=== PATIENT | male | born 1975 | race Caucasian/White ===

== ENCOUNTER 2018-06-15 08:05 | Observation (INO) ==
[2018-06-15] MEDS ORDERED: Ondansetron 4 MG/2 ML VIAL IVP ONE (08:15)
[2018-06-15] MEDS ORDERED: 0.9 % Sodium Chloride 1,000 ML IVC ONE ×2 (08:15→09:54)
[2018-06-15] MEDS ORDERED: Insulin Human Regular 10 UNIT in 0.9 % Sodium Chloride 10 ML IV ONE (08:22)
--- NOTE | 2018-06-15 08:25 | Emergency Department Note ---
Disposition Clinical Impression: Diabetes mellitus, new onset Disposition: Transfer Short-Term Hosp Condition: Fair Time of Disposition: 09:36 ( will admit) General Adult HPI - General Chief complaint: ED General Medical Stated complaint: nausea, dry mouth, cold sweat, diarrhea Time Seen by Provider: 06/15/18 08:23 Source: patient Mode of arrival: ambulatory Limitations: no limitations Nursing Notes Reviewed: Yes Vital Signs Reviewed: Yes - History of Present Illness HPI Narrative: 43-year-old male presents to the emergency room with complaints of nausea, generalized weakness dry mouth. He reports that his friend is a diabetic and he had his friend check his blood sugar at home, and apparently the machine read greater than 500 on the Accu-Chek. Patient states that he has no history of diabetes, he also complains of some mild shortness of breath but denies any chest pain. He reports that a few days ordered of also diarrhea. No fever no chills no back pain or flank pain. Onset (ago): day(s) (2) Radiation: non-radiation Pain Severity: mild Pain Scale: 0 Consistency: constant Improves with: nothing Worsens with: nothing Associated symptoms: Reports: denies other symptoms, shortness of breath, weakness. Denies: confusion, chest pain, cough, diaphoresis, fever/chills, headaches, loss of appetite, malaise, nausea/vomiting, seizure, syncope Treatments Prior to Arrival: none - Related Data Home Medications Medication Instructions Recorded Confirmed Lisinopril [Zestril] 20 mg PO DAILY 06/15/18 06/15/18 Allergies Allergy/AdvReac Type Severity Reaction Status Date / Time Penicillins [PCN] Allergy Hives Verified 06/15/18 08:07 All systems ED: reviewed and negative except as stated. Constitutional: Denies: fever, chills, weakness, weight change Eyes: Denies: eye pain, eye discharge, vision change ENT ED: Denies: ear pain, throat pain, dental pain, hearing loss, epistaxis, congestion, dysphagia Cardiovascular: Denies: chest pain, palpitations, dyspnea on exertion, edema, syncope Respiratory: Denies: cough, dyspnea, wheezes, hemoptysis, stridor Gastrointestinal: Denies: abdominal pain, nausea, vomiting, diarrhea, constipation, hematemesis, melena, hematochezia Genitourinary: Denies: urgency, dysuria, frequency, hematuria Musculoskeletal: Denies: back pain, neck pain, arthralgia, myalgia Integumentary: Denies: rash, abrasion, lesions Neurological: Denies: headache, weakness, numbness, paresthesias, confusion, abnormal gait, vertigo Psychiatric: Denies: anxiety, depression, suicidal thoughts, homicidal thoughts , auditory hallucinations, visual hallucinations Endocrine: Reports: fatigue, polydipsia Hematological/Lymphatic: Denies: easy bleeding, easy bruising Allergic/Immunologic: Denies: facial swelling, urticaria Past Medical History - Past Medical History Medical history: Reports: hypertension Psychiatric history: Reports: no psych history - Social History Smoking Status: Never smoker Smokeless Tobacco Status: Yes Alcohol use: Reports: none Drug use: Reports: none Physical Exam - General Limitations: no limitations General appearance: alert, in no apparent distress - Head Head exam: atraumatic, normocephalic, normal inspection - Eye Eye exam: Present: normal appearance, PERRL, EOMI - Expanded Eye Exam Pupils: Left: reactive - ENT ENT exam: normal exam, normal oropharynx, mucous membranes moist - Expanded ENT Exam External ear exam: Present: normal external inspection Mouth exam: Present: normal external inspection Teeth exam: Present: normal inspection Throat exam: Present: normal inspection - Neck Neck exam: Present: normal inspection, full ROM, trachea midline - Chest Chest inspection: Present: normal inspection, symmetric chest wall rise - Respiratory Respiratory exam: Present: normal lung sounds bilaterally - Cardiovascular Cardiovascular exam: Present: regular rate, normal rhythm, normal heart sounds - Abdominal Exam Abdominal exam: Present: soft, Non-Tender. Absent: tenderness, distention, guarding, rebound, rigidity - Extremities Exam Extremities exam: Present: normal inspection, full ROM. Absent: tenderness, pedal edema - Expanded Upper Extremity Exam Shoulder exam: Present: normal inspection, full ROM Arm exam: Present: normal inspection, full ROM Elbow exam: Present: normal inspection, full ROM Forearm/Wrist exam: Present: normal inspection, full ROM Hand exam: Present: normal inspection, full ROM Vascular exam: Normal: capillary refill, radial pulse - Expanded Lower Extremity Exam Hip/Pelvis exam: Present: normal inspection, full ROM Upper leg exam: Present: normal inspection, full ROM Knee exam: Present: normal inspection, full ROM Lower leg exam: Present: normal inspection, full ROM Ankle exam: Present: normal inspection, full ROM Foot/toe exam: Present: normal inspection, full ROM Neurovascular/Tendon exam: Absent: motor deficit, sensory deficit, tendon deficit - Back Exam Back exam: Present: normal inspection, full ROM. Absent: tenderness - Neurological Exam Neurological exam: Present: alert, oriented X3 - Expanded Neurological Exam Patient oriented to: Present: person, place, time Coma Scale Eye Opening: Spontaneous Coma Scale Motor Response: Obeys Commands Coma Scale Verbal Response: Oriented Coma Scale Total: 15 - Psychiatric Psychiatric exam: Present: normal affect, normal mood - Skin Skin exam: Present: warm, dry, intact, normal color Course Vital Signs Temperature 98.1 F 06/15/18 08:08 Pulse Rate 107 06/15/18 08:08 Respiratory Rate 17 06/15/18 08:08 Blood Pressure 140/86 06/15/18 08:08 O2 Sat by Pulse Oximetry 93 06/15/18 08:08 Temperature 98.1 F 06/15/18 08:08 Pulse Rate 85 06/15/18 11:04 Respiratory Rate 16 06/15/18 11:04 Blood Pressure 126/75 06/15/18 11:04 O2 Sat by Pulse Oximetry 95 06/15/18 11:04 Oxygen Delivery Oxygen Delivery Room Air Medical Decision Making - MDM Narrative Medical decision making narrative: Labs are obtained including CBC chemistries troponin EKG chest x-ray. ABG and a beta hydroxybutyric acid was ordered. Patient was given IV normal saline 1 L, 10 units of insulin regular are IV. According to lab for chemistry machine is presently down, I will not be back up until 2 hours. Patient will be admitted for overnight observation. I spoke with the hospitalist and he was okay with patient being placed in overnight FAMILY and patient agreed. Patient was given an additional 1 L bolus of normal saline, and 4 units of insulin regular IV, repeat Accu-Chek at admission was 392. - Differential Diagnosis New onset diabetic, DKA, dehydration - Medical Records Medical records reviewed: Yes I reviewed the patient's medical records. - Lab Data Lab results reviewed: Yes I reviewed the patient's lab results. Result diagrams: 06/15/18 08:43 06/15/18 08:43 Lab Results 06/15/18 06/15/18 06/15/18 Range/Units 08:18 08:43 08:43 WBC 9.7 (4.3-11.1) K/mcL RBC 4.95 (4.19-5.50) M/mcL Hgb 15.4 (12.9-16.9) g/dL Hct 44.2 (37.5-50.1) % MCV 89.3 (83.0-100.0) fL MCH 31.1 (28.0-33.3) pg MCHC 34.8 (31.6-35.5) g/dL RDW 12.2 (11.5-14.5) % Plt Count 163 (140-400) K/mcL MPV 11.7 (9.4-12.4) fL Immature Gran % 1.6 (0-4) % Seg Neutrophils % 66.9 % Lymphocytes % 23.7 % Monocytes % 5.9 % Eosinophils % 1.4 % Basophils % 0.5 % Neutrophils # 6.5 (1.6-8.9) K/mcL Lymphocytes # 2.3 (0.6-4.6) K/mcL Monocytes # 0.6 (0.0-1.3) K/mcL Eosinophils # 0.1 (0.0-0.6) K/mcL Basophils # 0.1 (0.0-0.2) K/mcL Sample Site ABG pH (7.32-7.45) pH Units ABG pCO2 (35-45) mmHg ABG pO2 (85-104) mmHg ABG HCO3 (21-27) mEq/L ABG Total CO2 (20-26) mEq/L ABG O2 Saturation (95-98) % ABG Base Excess (-2 to 3) mEq/L Tho Test O2 Delivery Device Sodium 131 L (136-145) mEq/L Potassium 4.2 (3.5-5.1) mEq/L Chloride 92 L (98-107) mEq/L Carbon Dioxide 28 (23-29) mEq/L BUN 11 (6-20) mg/dL Creatinine 0.91 (0.70-1.30) mg/dL Est GFR ( Amer) > 60 (> 60) Est GFR (Non-Af Amer) > 60 (> 60) BUN/Creatinine Ratio 12 (6-26) Glucose 537 H* (70-105) mg/dL POC Glucose 524 H* (70-99) mg/dL Calculated Osmolality 296 (280-300) Calcium 9.9 (8.6-10.3) mg/dL Total Bilirubin 0.8 (0.3-1.0) mg/dL AST 106 H (13-39) Units/L ALT 114 H (7-52) Units/L Alkaline Phosphatase 147 H (34-104) Units/L Troponin I (< 0.04) ng/mL Serum Total Protein 7.5 (6.4-8.9) g/dL Albumin 4.2 (3.5-5.7) g/dL Globulin 3.3 (2.4-3.5) g/dL Albumin/Globulin Ratio 1.3 (1.1-2.2) Beta-Hydroxybutyric Acd (0.02-0.27) mmol/L Urine Color (Yellow) Urine Clarity (Clear) Urine pH (5.0-8.0) pH Units Ur Specific [place] (1.010-1.025) Urine Protein (Neg-Trace) mg/dL Urine Glucose (UA) (Normal) mg/dL Urine Ketones (Negative) mg/dL Urine Blood (Negative) Urine Nitrite (Negative) Urine Bilirubin (Negative) Urine Urobilinogen (Normal) mg/dL Ur Leukocyte Esterase (Negative) Ur Culture Indicated? (NO) 06/15/18 06/15/18 06/15/18 Range/Units 08:43 08:43 09:00 WBC (4.3-11.1) K/mcL RBC (4.19-5.50) M/mcL Hgb (12.9-16.9) g/dL Hct (37.5-50.1) % MCV (83.0-100.0) fL MCH (28.0-33.3) pg MCHC (31.6-35.5) g/dL RDW (11.5-14.5) % Plt Count (140-400) K/mcL MPV (9.4-12.4) fL Immature Gran % (0-4) % Seg Neutrophils % % Lymphocytes % % Monocytes % % Eosinophils % % Basophils % % Neutrophils # (1.6-8.9) K/mcL Lymphocytes # (0.6-4.6) K/mcL Monocytes # (0.0-1.3) K/mcL Eosinophils # (0.0-0.6) K/mcL Basophils # (0.0-0.2) K/mcL Sample Site ABG pH (7.32-7.45) pH Units ABG pCO2 (35-45) mmHg ABG pO2 (85-104) mmHg ABG HCO3 (21-27) mEq/L ABG Total CO2 (20-26) mEq/L ABG O2 Saturation (95-98) % ABG Base Excess (-2 to 3) mEq/L Tho Test O2 Delivery Device Sodium (136-145) mEq/L Potassium (3.5-5.1) mEq/L Chloride (98-107) mEq/L Carbon Dioxide (23-29) mEq/L BUN (6-20) mg/dL Creatinine (0.70-1.30) mg/dL Est GFR ( Amer) (> 60) Est GFR (Non-Af Amer) (> 60) BUN/Creatinine Ratio (6-26) Glucose (70-105) mg/dL POC Glucose (70-99) mg/dL Calculated Osmolality (280-300) Calcium (8.6-10.3) mg/dL Total Bilirubin (0.3-1.0) mg/dL AST (13-39) Units/L ALT (7-52) Units/L Alkaline Phosphatase (34-104) Units/L Troponin I < 0.03 (< 0.04) ng/mL Serum Total Protein (6.4-8.9) g/dL Albumin (3.5-5.7) g/dL Globulin (2.4-3.5) g/dL Albumin/Globulin Ratio (1.1-2.2) Beta-Hydroxybutyric Acd 0.31 H (0.02-0.27) mmol/L Urine Color Yellow (Yellow) Urine Clarity Clear (Clear) Urine pH 6.5 (5.0-8.0) pH Units Ur Specific [place] <= 1.005 L (1.010-1.025) Urine Protein Negative (Neg-Trace) mg/dL Urine Glucose (UA) >=1000 H (Normal) mg/dL Urine Ketones Negative (Negative) mg/dL Urine Blood Negative (Negative) Urine Nitrite Negative (Negative) Urine Bilirubin Negative (Negative) Urine Urobilinogen Normal (Normal) mg/dL Ur Leukocyte Esterase Negative (Negative) Ur Culture Indicated? NO (NO) 06/15/18 06/15/18 06/15/18 Range/Units 09:14 09:46 09:49 WBC (4.3-11.1) K/mcL RBC (4.19-5.50) M/mcL Hgb (12.9-16.9) g/dL Hct (37.5-50.1) % MCV (83.0-100.0) fL MCH (28.0-33.3) pg MCHC (31.6-35.5) g/dL RDW (11.5-14.5) % Plt Count (140-400) K/mcL MPV (9.4-12.4) fL Immature Gran % (0-4) % Seg Neutrophils % % Lymphocytes % % Monocytes % % Eosinophils % % Basophils % % Neutrophils # (1.6-8.9) K/mcL Lymphocytes # (0.6-4.6) K/mcL Monocytes # (0.0-1.3) K/mcL Eosinophils # (0.0-0.6) K/mcL Basophils # (0.0-0.2) K/mcL Sample Site L Radial ABG pH 7.43 (7.32-7.45) pH Units ABG pCO2 46 H (35-45) mmHg ABG pO2 73 L (85-104) mmHg ABG HCO3 30 H (21-27) mEq/L ABG Total CO2 32 H (20-26) mEq/L ABG O2 Saturation 95 (95-98) % ABG Base Excess 5 H (-2 to 3) mEq/L Tho Test Positive O2 Delivery Device Room Air Sodium (136-145) mEq/L Potassium (3.5-5.1) mEq/L Chloride (98-107) mEq/L Carbon Dioxide (23-29) mEq/L BUN (6-20) mg/dL Creatinine (0.70-1.30) mg/dL Est GFR ( Amer) (> 60) Est GFR (Non-Af Amer) (> 60) BUN/Creatinine Ratio (6-26) Glucose (70-105) mg/dL POC Glucose 417 H* 410 H* (70-99) mg/dL Calculated Osmolality (280-300) Calcium (8.6-10.3) mg/dL Total Bilirubin (0.3-1.0) mg/dL AST (13-39) Units/L ALT (7-52) Units/L Alkaline Phosphatase (34-104) Units/L Troponin I (< 0.04) ng/mL Serum Total Protein (6.4-8.9) g/dL Albumin (3.5-5.7) g/dL Globulin (2.4-3.5) g/dL Albumin/Globulin Ratio (1.1-2.2) Beta-Hydroxybutyric Acd (0.02-0.27) mmol/L Urine Color (Yellow) Urine Clarity (Clear) Urine pH (5.0-8.0) pH Units Ur Specific [place] (1.010-1.025) Urine Protein (Neg-Trace) mg/dL Urine Glucose (UA) (Normal) mg/dL Urine Ketones (Negative) mg/dL Urine Blood (Negative) Urine Nitrite (Negative) Urine Bilirubin (Negative) Urine Urobilinogen (Normal) mg/dL Ur Leukocyte Esterase (Negative) Ur Culture Indicated? (NO) - Radiology Data Radiology results reviewed: Yes I reviewed the patient's radiology results. - EKG Data EKG #1 EKG attestation: Yes I reviewed and interpreted this EKG. EKG results narrative: Patient is EKG shows a sinus tachycardic rhythm rate of 104, patient also appears to have Q waves in leads 3 and aVF, I am not sure if this is may be a normal variant for this patient EKG shows normal: sinus rhythm Rate: tachycardia Rhythm: NSR [place]/QRS: normal
[2018-06-15 08:51] LABS: Basophils # 0.1 K/mcL (0.0-0.2); Basophils % 0.5 %; Eosinophils # 0.1 K/mcL (0.0-0.6); Eosinophils % 1.4 %; Hematocrit 44.2 % (37.5-50.1); Hemoglobin 15.4 g/dL (12.9-16.9); Immature Granulocytes % 1.6 % (0-4); Lymphocytes # 2.3 K/mcL (0.6-4.6); Lymphocytes % 23.7 %; Mean Corpuscular HGB Conc 34.8 g/dL (31.6-35.5); Mean Corpuscular Hemoglobin 31.1 pg (28.0-33.3); Mean Corpuscular Volume 89.3 fL (83.0-100.0); Mean Platelet Volume 11.7 fL (9.4-12.4); Monocytes # 0.6 K/mcL (0.0-1.3); Monocytes % 5.9 %; Neutrophils # 6.5 K/mcL (1.6-8.9); Platelet Count 163 K/mcL (140-400); Red Blood Count 4.95 M/mcL (4.19-5.50); Red Cell Distribution Width 12.2 % (11.5-14.5); Segmented Neutrophils % 66.9 %
[2018-06-15 09:18] LABS: Bilirubin,Urine Negative (Negative); Blood,Urine Negative (Negative); Clarity,Urine Clear (Clear); Color,Urine Yellow (Yellow); Glucose,Urine (UA) >=1000 mg/dL (Normal); Ketones,Urine Negative (Negative); Leukocyte Esterase,Urine Negative (Negative); Nitrite,Urine Negative (Negative); PH,Urine 6.5 pH Units (5.0-8.0); Protein,Urine Negative (Neg-Trace); Specific Gravity,Urine <= 1.005 (1.010-1.025); Urobilinogen,Urine Normal (Normal)
[2018-06-15 09:18] LABS: ABG Base Excess 5 mEq/L (-2 to 3); ABG HCO3 30 mEq/L (21-27); ABG Oxygen Saturation 95 % (95-98); ABG PCO2 46 mmHg (35-45); ABG PH 7.43 pH Units (7.32-7.45); ABG PO2 73 mmHg (85-104); ABG TCO2 32 mEq/L (20-26)
[2018-06-15] MEDS ORDERED: Insulin Regular, Human 100 UNIT/ML IV ONE ×2 (10:07→12:21)
[2018-06-15 11:21] LABS: Alanine Aminotransferase 114 Units/L (7-52); Albumin 4.2 g/dL (3.5-5.7); Albumin/Globulin Ratio 1.3 (1.1-2.2); Alkaline Phosphatase 147 Units/L (34-104); Aspartate Amino Transferase 106 Units/L (13-39); BUN/Creatinine Ratio 12 (6-26); Bilirubin,Total 0.8 mg/dL (0.3-1.0); Blood Urea Nitrogen 11 mg/dL (6-20); Calcium 9.9 mg/dL (8.6-10.3); Carbon Dioxide 28 mEq/L (23-29); Chloride 92 mEq/L (98-107); Globulin 3.3 g/dL (2.4-3.5); Glucose 537 mg/dL (70-105); Osmolality,Calculated 296 (280-300); Potassium 4.2 mEq/L (3.5-5.1); Sodium 131 mEq/L (136-145); Total Protein 7.5 g/dL (6.4-8.9); eGFR For African Americans > 60 (> 60); eGFR For Non-African Americans > 60 (> 60)
[2018-06-15 13:41] LABS: Estimated Average Glucose 295 mg/dl; Hemoglobin A1C 11.9 %
[2018-06-15] MEDS ORDERED: *HR* Dextrose 50 % in Water (Syg) 50 ML SYRINGE IVP PRN (16:52)
[2018-06-15] MEDS ORDERED: Dextrose Gel 15 GM/37.5 ML TUBE PO PRN ×2 (16:52)
[2018-06-15] MEDS ORDERED: D5% in Water 1,000 ML IVC PRN (16:52)
[2018-06-15] MEDS ORDERED: Insulin LISPRO 300 UNITS/3 ML VIAL SQ SCH ×2 (17:00→21:00)
[2018-06-15] MEDS: Insulin LISPRO 300 UNITS/3 ML VIAL SQ SCH (17:28)
--- NOTE | 2018-06-15 18:15 | Internal Med History&Physical ---
Date of Encounter: 06/15/18 Time of Encounter: 17:35 Assessment and Plan (1) Diabetes mellitus, new onset Current visit: Yes Status: Acute He will be started on metformin and Amaryl. Diabetic teaching will be done. Blood sugars will be monitored and further workup as needed. (2) Hypertension Current visit: Yes Status: Chronic Continue lisinopril. Qualifiers: Hypertension type: essential hypertension Qualified Code(s): I10 - Essential (primary) hypertension (3) Hyperlipidemia Current visit: Yes Status: Chronic Check lipid profile in a.m. Qualifiers: Hyperlipidemia type: unspecified Qualified Code(s): E78.5 - Hyperlipidemia , unspecified (4) Morbid obesity with BMI of 45.0-49.9, adult Current visit: Yes Status: Acute He will be given instruction for diabetic diet. We discussed need for weight loss. I recommended he talk to his PCP about evaluation for BRANDI. (5) Elevated transaminase level Current visit: Yes Status: Acute Suspect NAFLD. Recheck transaminase levels in a.m. Internal Medicine - H&P: HPI Chief complaint: Hyperglycemia Admitted From: Emergency Dept Plans for Post Hospital Care: Home History of present illness: Mr. Beckham is a 43 year old male who came to emergency room after blood sugar check using a friend's glucose meter read "high." He had felt nauseated and weak for the past 7-10 days. He was evaluated in emergency room and blood sugar was found to be 537. Ketones were positive but there was no acidosis. He was admitted to [facility] floor for ongoing care needs. He reports last lab tests approximately 2 years ago did not show evidence of diabetes. He states he drinks approximately 24 cans of regular soda pop and/ or energy drinks daily. He has had polyuria and dry mouth recently but denies blurred vision. He has hyperlipidemia but denies thyroid disease. Past Med Surg Social Fam HX - Past Medical History Medical history: hyperlipidemia, hypertension Psychiatric history: no psych history - Past Surgical History Additional surgical history: stomach surgery as a baby. exc cyst - Social History Smoking Status: Never smoker Smokeless Tobacco Status: Yes Alcohol use: none, rarely Drug use: none - Family History Mother Adopted: No Family Member Ethnicity: Non- Living Status: Still Living Hx Family Cancer: Yes (cervical) Hx Family Endocrine Disorder: Yes (diabetic) Brother Living Status: Still Living Hx Family Endocrine Disorder: Yes (diabetic) Maternal Grandmother Hx Family Cancer: Yes (brain and lung cancer) Maternal Grandfather Living Status: Cause of : heart attack Hx Family Cardiac Disorders: Yes (heart attack) Internal Medicine - H&P: Meds Lisinopril [Zestril] 20 mg PO DAILY 06/15/18 [History] 3 Allergy/AdvReac Type Severity Reaction Status Date / Time Penicillins [PCN] Allergy Hives Verified 06/15/18 08:07 All Systems PM: A 10-system review of systems was performed and is negative for pertinent findings except as documented above in the HPI. Review of systems: Gen.: He states his weight has decreased approximately 40 pounds in the past 2 years, unintentionally Cardiovascular: He is he has history of hypertension but denies ID heart failure angina DVT or pulmonary embolus Respiratory: He is a lifelong nonsmoker and denies chronic lung disease. He uses chewing tobacco. GI: Denies disorders of his liver gallbladder or exocrine pancreas : He denies hematuria dysuria or kidney stones Neurologic: He has had headaches at least 2-3 times per week for several months. He has not sought medical attention for these. He denies large distribution strokes or seizures. Endocrine: As per history of present illness Hematology/oncology: He denies blood disorders cancers or anemia Psychiatric: He denies anxiety depression or other mental health issues [place] skeletal: He has history of gout. He feels he has DJD. He denies other bone joint or muscle disorders. - Constitutional Vitals: Temp Pulse Resp BP Pulse Ox 98.5 F 88 17 105/65 94 06/15/18 12:27 06/15/18 14:52 06/15/18 14:52 06/15/18 14:52 06/15/18 14:52 Exam: Gen.: He is a well-developed obese male sitting on the side of bed who appears in no acute distress HEENT: Head is atraumatic and normocephalic. Eyes: EOMI. There is no scleral icterus. Mouth: Mucosa is moist. Neck: Supple and nontender. There is no thyromegaly or adenopathy noted. Heart: Regular without murmurs gallops or ectopics Lungs: No wheezes or crackles are heard. Abdomen: Soft and nontender. No masses or guarding are noted. Extremities: There is no cyanosis edema or clubbing noted. Dorsalis pedis and posterior tibial pulses are trace palpable bilaterally through BRITTANY hose. Neurologic: Mental status: He is talkative and a good historian. Cranial nerves : Smile is symmetric. Forehead wrinkles bilaterally. Tongue protrudes midline. EOMI. Motor: There is no pronator drift. Cerebellar: Finger to nose is intact bilaterally. Skin: Warm and dry Internal Med - H&P Results - Labs CBC & Chem 7: 06/15/18 08:43 06/15/18 08:43 - VTE Documentation of Mechanical Device: Graduated compression elastic hosiery
[2018-06-15] MEDS: *HR* Metformin 500 MG TABLET PO SCH (19:02)
[2018-06-16 07:16] VITALS: BP 114/72
[2018-06-16 07:42] LABS: Alanine Aminotransferase 110 Units/L (7-52); Albumin 4.1 g/dL (3.5-5.7); Albumin/Globulin Ratio 1.4 (1.1-2.2); Alkaline Phosphatase 134 Units/L (34-104); Aspartate Amino Transferase 120 Units/L (13-39); BUN/Creatinine Ratio 13 (6-26); Bilirubin,Total 0.8 mg/dL (0.3-1.0); Blood Urea Nitrogen 12 mg/dL (6-20); Calcium 9.1 mg/dL (8.6-10.3); Carbon Dioxide 30 mEq/L (23-29); Chloride 96 mEq/L (98-107); Chol/HDL Ratio 7.7 (0-4.9); Cholesterol 193 mg/dL (< 200); Glucose 356 mg/dL (70-105); HDL Cholesterol 25 mg/dL (40-59); LDL Cholesterol,Calculated 111 mg/dL (0-99); Magnesium 1.9 mg/dL (1.6-2.6); Osmolality,Calculated 292 (280-300); Potassium 4.2 mEq/L (3.5-5.1); Sodium 134 mEq/L (136-145); Total Protein 7.1 g/dL (6.4-8.9); Triglycerides 287 mg/dL (< 150); eGFR For African Americans > 60 (> 60); eGFR For Non-African Americans > 60 (> 60)
[2018-06-16 07:57] LABS: Thyroid Stimulating Hormone 3.417 mcIU/mL (0.340-5.600)
[2018-06-16] MEDS ORDERED: *HR* Glimepiride 2 MG TABLET PO SCH (08:00)
[2018-06-16] MEDS: *HR* Metformin 500 MG TABLET PO SCH (08:15)
[2018-06-16] MEDS: Insulin LISPRO 300 UNITS/3 ML VIAL SQ SCH ×2 (08:16→11:16)
[2018-06-16] MEDS ORDERED: Lisinopril 20 MG TABLET PO SCH (09:00)
--- NOTE | 2018-06-16 10:13 | Discharge Summary ---
Orders not resulted at time of discharge: Pending orders 06/16/18 04:00 Uric Acid AM 0400 Date of Encounter: 06/16/18 Time of Encounter: 10:00 - Discharge Diagnosis (1) Diabetes mellitus, new onset Priority: Primary Status: Acute (2) Hypertension Priority: Secondary Status: Chronic Qualifiers: Hypertension type: essential hypertension Qualified Code(s): I10 - Essential (primary) hypertension (3) Hyperlipidemia Priority: Secondary Status: Chronic Qualifiers: Hyperlipidemia type: unspecified Qualified Code(s): E78.5 - Hyperlipidemia , unspecified (4) Morbid obesity with BMI of 45.0-49.9, adult Priority: Secondary Status: Acute (5) Elevated transaminase level Priority: Secondary Status: Acute Hospital course: Mr. Beckham is a 43 year old male who came to emergency room after blood sugar check using a friend's glucose meter read "high." He had felt nauseated and weak for the past 7-10 days. He was evaluated in emergency room and blood sugar was found to be 537. Ketones were positive but there was no acidosis. He was admitted to [facility] floor for ongoing care needs. He reports last lab tests approximately 2 years ago did not show evidence of diabetes. He states he drinks approximately 24 cans of regular soda pop and/ or energy drinks daily. He has had polyuria and dry mouth recently but denies blurred vision. He has hyperlipidemia but denies thyroid disease. Initial orders were written by the emergency room physician. I saw him on June 15 and performed a history and physical. He was started on metformin and Amaryl. Diabetic teaching was done. Blood sugars showed some improvement but were still above desirable range. He will monitor blood sugars at home and medication can be further adjusted by his PCP. I recommended an eye examination to evaluate for diabetic eye disease. Lipid profile showed total cholesterol 193, triglycerides 287, LDL 111, HDL 25, and total/HDL ratio 7.7. He reports he had not taken pravastatin for several months. This will be restarted and his PCP can monitor labs. TSH returned normal at 3.417. On June 16 I felt he was stable for discharge home. He will follow with a PCP within 1 week. I recommended he have a sleep study to evaluate for BRANDI. - Time Spent with Patient Total time spent providing and/or coordinating discharge services: - Discharge Medications Prescriptions: Glimepiride [Amaryl] 2 mg PO 0800 #30 tablet metFORMIN [Glucophage] 500 mg PO BIDWM #60 tablet Pravastatin Sodium [Pravachol] 40 mg PO HS #30 tablet Home Medications: Lisinopril [Zestril] 20 mg PO DAILY 06/15/18 [History] Glimepiride [Amaryl] 2 mg PO 0800 #30 tablet 06/16/18 [Rx] Pravastatin Sodium [Pravachol] 40 mg PO HS #30 tablet 06/16/18 [Rx] metFORMIN [Glucophage] 500 mg PO BIDWM #60 tablet 06/16/18 [Rx] Allergies/Adverse Reactions: 3 Allergy/AdvReac Type Severity Reaction Status Date / Time Penicillins [PCN] Allergy Hives Verified 06/15/18 08:07 Date of admission: 06/15/18 10:25 Primary care physician: oBy Nuno CNP Consults: 06/15/18 18:10 Consult to Diabetes Education [CONS] Routine Comment: Reason for Consult: Newly diagnosed DM 2 - Constitutional Vitals: Temp Pulse Resp BP Pulse Ox 97.4 F L 76 18 114/72 95 06/16/18 07:13 06/16/18 07:13 06/16/18 07:13 06/16/18 07:13 06/16/18 07:13 - Patient Status Disposition: Home, Self-Care Condition: Fair Overall status at discharge: patient is progressing back to baseline - Discharge Instructions Follow Up With: Pedro Nuno [employer]ION[facility] ENVIRONMENTAL MANAGER [Advanced Practice Nurse] - 1 week - Diet and Activity Activity: resume usual activities as tolerated Diet: diabetic diet - VTE Documentation of Mechanical Device: Graduated compression elastic hosiery
--- NOTE | 2018-06-16 19:58 | Electrocardiograph Report ---
[address] [place] [address] Test Date: 2018-06-15 Pat Name: Robert Beckham Department: [id number] Room: [facility] Gender: M Agency Trainer: [id number] : 1975 Requested By: Tanika Sher Order Number: [id number] Reading MD: Tory Manning Measurements Intervals [place] Rate: 104 P: 42 [place]: 140 QRS: 4 QRSD: 98 T: 1 QT: 335 QTc: 395 Interpretive Statements SINUS TACHYCARDIA INFERIOR MYOCARDIAL INFARCTION, PROBABLY OLD Electronically Signed On 06-16-2018 19:56:55 EDT by Tory Manning
== END 2018-06-16 11:35 | disposition home or self-care (01) ==
LOC: INPPIK 08:05 → EMEROOPIK 08:05 → INPPIK 11:33
PROVIDERS: ADMIT Internal Medicine; ATTEND Internal Medicine